=== PATIENT | male | born 1945 | race African-American/Black ===

== ENCOUNTER 2018-07-11 12:35 | Emergency (ER) | payer OTHER ==
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
[2018-07-11] MEDS ORDERED: ZOFRAN ODT PO ONE (13:48)
[2018-07-11] MEDS ORDERED: PERCOCET 5/325 PO ONE (13:48)
--- NOTE | 2018-07-11 14:14 | XRay Report ---
PROCEDURE: XR SHOULDER 2+V LT TECHNIQUE: 3 views of the left shoulder. HISTORY: left shoulder pain, s/p fall COMPARISON: None FINDINGS: There is a mildly comminuted and displaced fracture involving the humeral head and neck. This is not well characterized but grossly demonstrates lateral angulation. There is no dislocation seen. IMPRESSION: Mildly comminuted and displaced fracture of the left humeral head and neck. This document is electronically signed by Rosie House MD., Jul 11 2018 02:12:20 PM ET
--- NOTE | 2018-07-11 14:24 | Cat Scan Report ---
PROCEDURE: CT HEAD/BRAIN WO CON TECHNIQUE: Axial images of the head obtained without intravenous contrast. HISTORY: fall COMPARISONS: No priors FINDINGS: The ventricles are normal in size and configuration. There is no evidence of intracranial hemorrhage or hematoma. No intracranial mass or mass effect. Basal ganglia calcifications more prominent on the left. No edema or sulcal effacement. The calvarium is intact. There is no evidence of acute skull fracture. Left frontal and supraorbital scalp hematoma. Paranasal sinus mucosal thickening, likely chronic. IMPRESSION: No acute intracranial injury. Left frontal and supraorbital scalp hematoma.. This document is electronically signed by Gregor Munoz MD., Jul 11 2018 02:22:27 PM ET
--- NOTE | 2018-07-11 14:28 | Cat Scan Report ---
PROCEDURE: CT FACIAL BONES WO CON TECHNIQUE: Axial images obtained of the maxillofacial region without intravenous contrast. Sagittal and coronal reconstructions also obtained. HISTORY: fall, left orbital ecchymosis/edema COMPARISONS: No priors. FINDINGS: There is no evidence of acute mandibular, maxillary, zygomatic, orbital or nasal fracture. Paranasal sinus mucosal thickening, likely chronic. Ocular globes are normal in contour. No evidence of retrobulbar hematoma. Left periorbital contusion IMPRESSION: No evidence of acute maxillofacial fracture. Left periorbital contusion.. This document is electronically signed by Gregor Munoz MD., Jul 11 2018 02:26:25 PM ET
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
[2018-07-11 14:58] VITALS: BP 147/73
== END 2018-07-11 15:12 | disposition home or self-care (01) ==
LOC: ED 12:35
DX: S42.292A Other displaced fracture of upper end of left humerus, initial encounter for closed fracture (principal); W01.0XXA Fall on same level from slipping, tripping and stumbling without subsequent striking against object, initial encounter; Y93.89 Activity, other specified; Y92.89 Other specified places as the place of occurrence of the external cause; Y99.8 Other external cause status
CPT/HCPCS: 70450; 70486; Q0162

== ENCOUNTER 2018-07-27 13:21 | Outpatient (CLI) | payer MEDICARE ==
--- NOTE | 2018-07-27 17:09 | Cat Scan Report ---
PROCEDURE: CT UPPER EXTREM LT WO CON TECHNIQUE: Spiral imaging of the left shoulder was obtained without the use of IV contrast. Computer -generated sagittal and coronal reconstructions were created and displayed. HISTORY: FRACTURE OF LEFT SHOULDER GIRDIE COMPARISONS: Plain films left shoulder 07/11/2018 FINDINGS: There is a comminuted moderately displaced fracture of the body of the scapula. There is mild callus formation at the fracture site indicating ongoing healing. There is a comminuted impacted displaced fracture of the proximal shaft of the left humeral shaft wit h intra-articular extension. There is a large fragment including the greater tuberosity also the less er tuberosity and the groove for the long head of the biceps tendon. This large fragment is laterally displaced and also fractured with fracture lines extending through the greater tuberosity. The fract ure lines through the greater tuberosity are only mildly displaced. A large fragment of the humeral h ead is impacted inferiorly and medially. This fragment measures 3.4 cm best visualized on sagittal re construction image 79 series 301. Given this large displaced fragment the articular surface is severely disrupted. Callus formation is seen at these fracture sites as well indicating ongoing healing. There is no comp lete bony union at this time. IMPRESSION: Displaced impacted fracture proximal shaft of the humerus involving the articular surface as describe d. The articular surface of the humeral head as a result of the displacement is severely disrupted. There is a comminuted moderately displaced fracture of the body of the scapula as well. There is mild callus formation present at the fracture sites as described indicating ongoing healing. There is no evidence of complete bony union.. This document is electronically signed by Yoshi Ritter MD., Jul 27 2018 05:07:44 PM ET
== END 2018-07-27 13:22 | disposition home or self-care (01) ==
LOC: CT 13:21
PROVIDERS: ATTEND Orthopaedic Surgery
DX: S42.112A Displaced fracture of body of scapula, left shoulder, initial encounter for closed fracture (principal); S42.292A Other displaced fracture of upper end of left humerus, initial encounter for closed fracture; X58.XXXA Exposure to other specified factors, initial encounter; Y93.89 Activity, other specified; Y92.89 Other specified places as the place of occurrence of the external cause; Y99.8 Other external cause status

== ENCOUNTER 2018-08-05 08:57 | Observation (INO) | payer MEDICARE ==
--- NOTE | 2018-08-05 09:39 | Anesthesia Consultation ---
Anesthesia Consult and Med Hx Date of service: 08/05/18 - Airway Anesthetic Teeth Evaluation: Dentures ROM Head & Neck: Adequate Mental/Hyoid Distance: Adequate Mallampati Class: Class III Intubation Access Assessment: Probably Good - Pulmonary Exam CTA: Yes - Cardiac Exam Cardiac Exam: RRR - Pre-Operative Health Status ASA Pre-Surgery Classification: ASA2 Proposed Anesthetic Plan: General Nerve Block: IS (Patient has hx of Hep B, otherwise healthy) - Pulmonary Hx Smoking: No Hx Sleep Apnea: No (ZOFIA PRE SCREEN LOW RISK) - Cardiovascular System Hx Hypertension: No - Other Systems Hx Cancer: No
--- NOTE | 2018-08-05 09:40 | Anesthesia Day of Surgery ---
Anesthesia Day of Surgery - Day of Surgery Patient Examined: Yes Patient H&P Reviewed: Yes Patient is NPO: Yes
[2018-08-05] MEDS ORDERED: DILAUDID IV PRN (09:42)
[2018-08-05] MEDS ORDERED: ANCEF/STERILE WATER 2 GM/20 ML IV NR (10:00)
[2018-08-05] MEDS ORDERED: ZOFRAN IV PRN (10:00)
[2018-08-05] MEDS: LACTATED RINGERS 1,000 ML IV SCH ×2 (10:05→21:35)
[2018-08-05] MEDS ORDERED: VERSED ONE (10:16)
[2018-08-05] MEDS ORDERED: SUBLIMAZE ONE ×2 (10:17→11:29)
[2018-08-05] MEDS ORDERED: MARCAINE-EPI 0.5%-1:200,000 INFILTRATI ONE ×2 (10:18→11:14)
[2018-08-05] MEDS ORDERED: XYLOCAINE 1% 20 mL ONE (10:18)
[2018-08-05] MEDS ORDERED: DIPRIVAN 10 MG/ML IV ONE (11:25)
[2018-08-05] MEDS ORDERED: ZEMURON IV ONE (11:52)
[2018-08-05] MEDS ORDERED: ROBINUL ONE (11:52)
[2018-08-05] MEDS ORDERED: ZOFRAN ONE (11:52)
[2018-08-05] MEDS ORDERED: BLOXIVERZ ONE (11:52)
[2018-08-05] MEDS ORDERED: XYLOCAINE MPF 2% ONE (11:52)
[2018-08-05] MEDS ORDERED: TYLENOL PO PRN (13:49)
[2018-08-05] MEDS ORDERED: MORPHINE IV PRN (13:49)
--- NOTE | 2018-08-05 13:55 | Procedure Note ---
Date of procedure: 08/05/18 Pre-op diagnosis: [id number] left proximal humerus fracture Post-op diagnosis: same Procedure: Open reduction internal fixation left proximal humerus Procedure The patient was brought to the OR and placed on the OR table supine following induction and intubation by anesthesia the patient's left upper extremity was prepped and draped in the usual sterile manner he was placed in a beachchair position with a sandbag underneath the left shoulder. A timeout procedure was done to identify the patient and the correct operative site. A lateral incision was made along the proximal humerus this is taken down sharply through skin and subcutaneous the deltoid fascia and muscle was split in line with the skin incision this brought us down onto the fracture site patient was noted to have old clotted hematoma which was evacuated the humeral shaft was seen and exhibited early healing or callus formation next the in order to visualize the proximal fragment D rotator cuff tendon was split was then visualized on C-arm and was then manipulated into a more reduced position with the assistance of a K wire for mobility and temporary fixation. The axillary nerve and an artery were seen and protected next a locking plate was applied along the lateral border of the humerus next to the greater tuberosity patient was noted to have a large bony defect which necessitated use of cancellus bone allografting. Under C-arm visualization multiple locking screws were placed into the proximal fragment the shaft fragment was secured by way of 2 nonlocking screws AP and lateral views were obtained showing good reduction of fracture and placement of our hardware next the wound was copiously irrigated and was closed in a standard routine fashion starting with the deltoid fascia and rotator cuff tendon. Routine postoperative dressings were applied the patient tolerated the procedure there were no complications. He taken to post op recovery in stable condition. Anesthesia: XOCHITLA Surgeon: SARAH POWER Account Administrator: ALEX WRIGHT Estimated blood loss: other (300 mL) Pathology: none Condition: stable Disposition: PACU
[2018-08-05] MEDS ORDERED: SODIUM CHLORIDE FLUSH SYRINGE 10 ML IV NR (14:00)
[2018-08-05] MEDS ORDERED: LACTATED RINGERS 2,000 ML ONE (14:02)
[2018-08-05 14:55] LABS: Hematocrit 37.8 % (35.5-45.6); Hemoglobin 12.9 gm/dl (11.8-15.2); Mean Corpuscular HGB Conc 34 % (32-34); Mean Corpuscular Volume 89 fl (84-94); Platelet Count 197 K/mm3 (140-440); Red Blood Count 4.24 M/mm3 (3.65-5.03); Red Cell Distribution Width 13.3 % (13.2-15.2)
--- NOTE | 2018-08-05 15:11 | XRay Report ---
LEFT SHOULDER, 2 VIEWS History: Left humeral head fracture. Findings: Fluoroscopy was provided by radiology during orthopedic surgery. 3 fluoroscopic images of the left shoulder are presented demonstrating internal fixation of the left humeral head with metal plate and screws. Alignment is anatomic. There is normal articulation of the left shoulder joint. Impression: Open reduction and internal fixation of a proximal left humerus fracture.
--- NOTE | 2018-08-05 15:46 | Post Anesthesia Evaluation ---
- Post Anesthesia Evaluation Patient Participated: Yes Airway Patent: Yes Stable Respiratory Function: Yes Nausea/Vomiting: No Temp > 96.8F: Yes Pain Manageable: Yes Adequeate Hydration: Yes Anesthesia Complications: No Block Receding Appropriately: Yes Patient on Ventilator: No
[2018-08-05] MEDS: NORCO 5/325 PO PRN (21:32)
[2018-08-05] MEDS: ANCEF/NS 1 GM/50 ML 1 GM/50 ML BAG IV SCH (21:34)
[2018-08-06] MEDS: NORCO 5/325 PO PRN ×2 (03:08→08:43)
[2018-08-06] MEDS: ANCEF/NS 1 GM/50 ML 1 GM/50 ML BAG IV SCH (05:20)
[2018-08-06 06:07] LABS: Hematocrit 34.5 % (35.5-45.6); Hemoglobin 11.9 gm/dl (11.8-15.2)
[2018-08-06] MEDS: LACTATED RINGERS 1,000 ML IV SCH (08:53)
--- NOTE | 2018-08-06 13:41 | Progress Note ---
Assessment and Plan displaced left proximal humerus fracture s/p ORIF doing ok will dc to home today RTC in 10 for f/u Subjective Date of service: 08/06/18 Interval history: c/o left shoulder pain otherwise ok Objective Vital signs: Vital Signs - 12hr 08/06/18 08/06/18 08/06/18 03:08 04:08 04:48 Temperature 99.3 F Pulse Rate 81 Respiratory 17 17 20 Rate Blood Pressure 114/62 O2 Sat by Pulse 94 Oximetry 08/06/18 08/06/18 08:12 12:01 Temperature 98.0 F 98.4 F Pulse Rate 76 87 Respiratory 18 18 Rate Blood Pressure 106/57 145/83 O2 Sat by Pulse 95 96 Oximetry Narrative Exam: left shoulder - post op dressing intact, slight bloody drainage noted, good capillary refill - Labs CBC & BMP: 08/06/18 05:32 Labs: Abnormal lab results 08/06/18 Range/Units 05:32 Hct 34.5 L (35.5-45.6) %
[2018-08-06 14:57] VITALS: BP 145/83
== END 2018-08-06 15:05 | disposition home or self-care (01) ==
LOC: OR 08:57 → 3B-SURG 13:47
PROVIDERS: ADMIT Orthopaedic Surgery; ATTEND Orthopaedic Surgery
DX: S42.292A Other displaced fracture of upper end of left humerus, initial encounter for closed fracture (principal); J45.909 Unspecified asthma, uncomplicated; I10 Essential (primary) hypertension; B19.10 Unspecified viral hepatitis B without hepatic coma; Z79.899 Other long term (current) drug therapy; W01.0XXA Fall on same level from slipping, tripping and stumbling without subsequent striking against object, initial encounter; Y93.89 Activity, other specified; Y92.009 Unspecified place in unspecified non-institutional (private) residence as the place of occurrence of the external cause
CPT/HCPCS: 23615; 36415; 73030; 85014; 85018; 85027; 86850; 86900; 86901; 94760; 96365; 96366; 96375; 97110; 97165; 97535; C1713; G0378; J0690; J2250; J2270; J2405; J2704; J2710; J3010; J7120

== ENCOUNTER 2018-10-06 09:36 | Outpatient (CLI) | payer MEDICARE ==
--- NOTE | 2018-10-06 10:24 | XRay Report ---
LEFT SHOULDER, 3 VIEWS INDICATION: M25.512, PAIN IN LEFT SHOULDER. COMPARISON: 07/11/2018 IMPRESSION: The proximal left humerus fracture has been internally fixated with a metal plate and sc rews since the previous exam. Alignment is anatomic. Fracture lines remain slightly evident although calcified callus is seen bridging the fracture sites. No evidence for new or acute fracture. Mild ost eoarthritic changes are noted at the glenohumeral joint and acromioclavicular joint. Normal soft tis sues. Signer Name: Pineda Armendariz Jr, MD Signed: 10/06/2018 10:19 AM Workstation Name: [id number]
== END 2018-10-06 09:37 | disposition home or self-care (01) ==
LOC: XRAY 09:36
PROVIDERS: ATTEND Orthopaedic Surgery
DX: M19.012 Primary osteoarthritis, left shoulder (principal); I10 Essential (primary) hypertension

== ENCOUNTER 2020-03-16 13:07 | Observation (INO) | payer MEDICARE ==
--- NOTE | 2020-03-16 13:33 | Event Note ---
ED Screening Note Date of service: 03/16/20 Time: 13:28 ED Screening Note: 74-year-old lady remains male presents to the emergency room with his son concern for right-sided lower extremity weakness that started on Thursday. Son is concerned that that may had a stroke. Patient denies any headache at this time no nausea no vomiting. He is being treated for hepatitis B. Patient has had to start using a cane to help ambulate on Thursday. He takes hepatitis medication no blood pressure medicine. It was noted the patient had elevated blood pressure 161/89. This initial assessment/diagnostic orders/clinical plan/treatment(s) is/are subject to change based on patients health status, clinical progression and re- assessment by fellow clinical providers in the ED. Further treatment and workup at subsequent clinical providers discretion. Patient/guardian urged not to elope from the ED as their condition may be serious if not clinically assessed and managed. Initial orders include:
[2020-03-16 14:15] LABS: Basophils # (Auto) 0.1 K/mm3 (0.0-0.1); Basophils % (Auto) 0.8 % (0.0-1.8); Eosinophils # (Auto) 0.2 K/mm3 (0.0-0.4); Eosinophils % (Auto) 2.4 % (0.0-4.3); Hematocrit 48.1 % (35.5-45.6); Hemoglobin 16.4 gm/dl (11.8-15.2); Lymphocytes # (Auto) 1.9 K/mm3 (1.2-5.4); Mean Corpuscular HGB Conc 34 % (32-34); Mean Corpuscular Volume 89 fl (84-94); Monocytes # (Auto) 0.5 K/mm3 (0.0-0.8); Monocytes % (Auto) 6.7 % (0.0-7.3); Platelet Count 200 K/mm3 (140-440); Red Blood Count 5.39 M/mm3 (3.65-5.03); Red Cell Distribution Width 13.2 % (13.2-15.2)
[2020-03-16 15:02] LABS: Alanine Aminotransferase 43 units/L (7-56); Albumin 4.9 g/dL (3.9-5); BUN/Creatinine Ratio 14; Blood Urea Nitrogen 11 mg/dL (9-20); Calcium 9.7 mg/dL (8.4-10.2); Chol/HDL Ratio 2.98 %; HDL Cholesterol 70 mg/dL (40-59); Hemolysis Index 15; LDL Cholesterol,Direct 146 mg/dL (50-130)
[2020-03-16 17:55] LABS: Bilirubin,Urine NEG (Negative); Blood,Urine NEG (Negative); Color,Urine Yellow (Yellow); Mucus,Urine FEW /HPF; Protein,Urine <15 mg/dL mg/dL (Negative); Urobilinogen,Urine < 2.0 mg/dL (<2.0); WBC,Urine < 1.0 /HPF (0.0-6.0)
--- NOTE | 2020-03-16 18:39 | Cat Scan Report ---
CT head/brain wo con INDICATION: New weakness. TECHNIQUE: Routine CT head. All CT scans at this location are performed using CT dose reduction for A LIANA by means of automated exposure control. COMPARISON: 07/11/2018 FINDINGS: Intracranial: Dasilva-white matter differentiation is maintained. No intracranial hemorrhage. No extra a xial collection. No hydrocephalus. No herniation. Periventricular and centrum semiovale white matter hypoattenuation most consistent with sequela of chronic microvascular disease. Sinuses: Paranasal sinuses and mastoid air cells are essentially clear. Orbits: Globes are intact. Calvarium: No acute fracture. IMPRESSION: 1. No acute intracranial abnormality. Signer Name: Claude Westfall MD Signed: 03/16/2020 6:34 PM Workstation Name: [id number]
--- NOTE | 2020-03-16 23:47 | Emergency Department Report ---
ED Headache HPI - General Chief Complaint: Headache Stated Complaint: HEADACHE Time Seen by Provider: 03/16/20 23:31 Source: patient Exam Limitations: language barrier - History of Present Illness Initial Comments: 74-year-old male that presents emergency room with complaints of headache x1 week. Patient states the headache is mild. Patient states is about a 3 out of 10. Patient states the pain is better with rest and worse with exertion. Patient denies chest pain or shortness of breath. Patient states that 4 days ago he developed right-sided weakness. Patient state s that the weakness is making it difficult to walk. Patient states that the weakness is worsening. Patient saw an outpatient physician and was told to come here for evaluation and a head CT. Patient denies recent travel. Patient denies recent international travel. Patient denies exposure to the novel coronavirus. Patient denies sick contacts. Patient denies fever and chills. Patient denies cough. Patient denies diarrhea. Patient denies coming in contact with anybody with symptoms of the novel coronavirus. Son at bedside to interpret. Timing/Duration: 1 week Quality: mild Recent Head Trauma: chronic headaches Modifying Factors: improves with: movement, rest Associated Symptoms: weakness. denies: confusion, fatigue, facial pain, fever/chills, flushing, loss of consciousness, nausea/vomiting, nasal congestion, nasal drainage, numbness in legs/feet, rash, seizures, sinus infection, stiff neck, vision changes Allergies/Adverse Reactions: Allergies No Known Allergies Allergy (Verified 03/16/20 13:23) Home Medications: Ambulatory Orders Entecavir 0.5 mg PO DAILY 08/02/18 Multivit-Min/FA/Lycopen/Lutein [Centrum Silver Men Tablet] 1 each PO DAILY 08/02/18 Celecoxib [celeBREX] 200 mg PO BID #60 cap 08/06/18 Oxycodone HCl/Acetaminophen [Percocet 7.5/325 mg] 1 each PO Q6HR PRN #30 tablet 08/06/18 ED Review of Systems ROS: Stated complaint: HEADACHE Other details as noted in HPI Constitutional: weakness. denies: chills, fever Eyes: denies: eye pain, eye discharge, vision change ENT: denies: ear pain, throat pain Respiratory: denies: cough, shortness of breath, wheezing Cardiovascular: denies: chest pain, palpitations Endocrine: no symptoms reported Gastrointestinal: denies: abdominal pain, nausea, diarrhea Genitourinary: denies: urgency, dysuria Musculoskeletal: denies: back pain, joint swelling, arthralgia Skin: denies: rash, lesions Neurological: as per HPI, headache, weakness. denies: paresthesias Psychiatric: denies: anxiety, depression Hematological/Lymphatic: denies: easy bleeding, easy bruising ED Past Medical Hx - Past Medical History Previous Medical History?: Yes Hx Hypertension: Yes Hx CVA: Yes Hx Diabetes: Yes Hx Arthritis: Yes Hx HIV: No - Surgical History Past Surgical History?: No - Family History Family history: no significant - Social History Smoking Status: Never Smoker Substance Use Type: None - Medications Home Medications: Home Medications Medication Instructions Recorded Confirmed Last Taken Type Entecavir 0.5 mg PO DAILY 08/02/18 08/02/18 08/04/18 History Multivit-Min/FA/Lycopen/Lutein 1 each PO DAILY 08/02/18 08/05/18 08/04/18 History [Centrum Silver Men Tablet] Celecoxib [celeBREX] 200 mg PO BID #60 cap 08/06/18 Unknown Rx Oxycodone HCl/Acetaminophen 1 each PO Q6HR PRN #30 tablet 08/06/18 Unknown Rx [Percocet 7.5/325 mg] ED Physical Exam - General Limitations: Language Barrier General appearance: alert, in no apparent distress - Head Head exam: Present: atraumatic, normocephalic - Eye Eye exam: Present: normal appearance, PERRL Pupils: Present: normal accommodation - ENT ENT exam: Present: mucous membranes moist - Neck Neck exam: Present: normal inspection - Respiratory Respiratory exam: Present: normal lung sounds bilaterally. Absent: respiratory distress - Cardiovascular Cardiovascular Exam: Present: regular rate, normal rhythm. Absent: systolic murmur, diastolic murmur, rubs, gallop - GI/Abdominal GI/Abdominal exam: Present: soft, normal bowel sounds - Rectal Rectal exam: Present: deferred - Extremities Exam Extremities exam: Present: normal inspection - Back Exam Back exam: Present: normal inspection - Neurological Exam Neurological exam: Present: alert, oriented X3, CN II-XII intact, abnormal gait - Psychiatric Psychiatric exam: Present: normal affect, normal mood - Skin Skin exam: Present: warm, dry, intact, normal color. Absent: rash ED Course Vital Signs 03/16/20 13:24 Temperature 98.1 F Pulse Rate 65 Respiratory 18 Rate Blood Pressure 161/89 O2 Sat by Pulse 95 Oximetry - Reevaluation(s) Reevaluation #1: I discussed all results with patient. I discussed plan of care with patient. Patient agrees with plan of care and admission. Patient to be admitted to the hospitalist service. 03/17/20 00:20 - Consultations Consultation #1: Neurology consulted. 03/17/20 00:02 Neurology saw the patient and recommends admission, MRI and stroke work-up. 03/17/20 00:17 Consultation #2: Hospitalist consulted for admission. Hospitalist to admit patient. 03/17/20 00:19 ED Medical Decision Making - Lab Data Result diagrams: 03/16/20 13:49 03/16/20 13:49 - Radiology Data Radiology results: report reviewed CT head/brain wo con INDICATION: New weakness. TECHNIQUE: Routine CT head. All CT scans at this location are performed using CT dose reduction for ALARA by means of automated exposure control. COMPARISON: 07/11/2018 FINDINGS: Intracranial: Dasilva-white matter differentiation is maintained. No intracranial hemorrhage. No extra axial collection. No hydrocephalus. No herniation. Periventricular and centrum semiovale white matter hypoattenuation most consistent with sequela of chronic microvascular disease. Sinuses: Paranasal sinuses and mastoid air cells are essentially clear. Orbits: Globes are intact. Calvarium: No acute fracture. IMPRESSION: 1. No acute intracranial abnormality. - Differential Diagnosis CVA, weakness, headache, hypertension, Critical Care Time: Yes Critical care time in (mins) excluding proc time.: 35 Critical care attestation.: If time is entered above; I have spent that time in minutes in the direct care of this critically ill patient, excluding procedure time. Critical Care Time: 35 MINUTES ED Disposition Clinical Impression: Right sided weakness Headache Qualifiers: Headache type: unspecified Headache chronicity pattern: acute headache Intracta bility: not intractable Qualified Code(s): R51.9 - Headache, unspecified Disposition: -09 OP ADMIT IP TO THIS HOSP Is pt being admited?: Yes Does the pt Need Aspirin: No Condition: Critical Time of Disposition: 00:22 - Assessment Assessment Interval: Baseline - Level of Consciousness 1a. Level of Consciousness: alert/keenly responsive - LOC Questions 1b. LOC Questions: answers both correctly - LOC Command 1c. LOC Commands: performs tasks correctly - Best Gaze 2. Best Gaze: normal - Visual 3. Visual: no visual loss - Facial Palsy 4. Facial Palsy: normal symmetrical movement - Motor Arm 5a. Motor Arm Left: no drift 5b. Motor Arm Right: no drift - Motor Leg 6a. Motor Leg Left: no drift 6b. Motor Leg Right: drift - Limb Ataxia 7. Limb Ataxia: absent - Sensory 8. Sensory: normal - Best Language 9. Best Language: no aphasia - Dysarthria 10. Dysarthria: normal - Extinction and Inattention 11. Extinction/Inattention: no abnormality - Scoring Total Score: 1 Stroke Severity: Minor Stroke
--- NOTE | 2020-03-17 00:17 | Emergency Department Report ---
ED Neuro Deficit HPI - General Chief Complaint: Headache Stated Complaint: HEADACHE Time Seen by Provider: 03/16/20 23:31 Source: patient Mode of arrival: Ambulatory Limitations: Language Barrier - History of Present Illness Initial Comments: [facility] Services Stat Consult Date of Service: 03/16/2020 23:59:48 Impression: R53.1 - Weakness Comments/Sign-Out: acute onset right sided weakness and headache - concerning for L frontal vs subcortical infarct. Recommend admission for stroke workup. CT HEAD: Showed No Acute Hemorrhage or Acute Core Infarct Reviewed Metrics: [facility] Notification Time: 03/16/2020 23:59:48 Stamp Time: 03/16/2020 23:59:48 Our recommendations are outlined below. Recommendations: start ASA if CT head is neg for hemorrhage. Imaging Studies: MRI Head MRA Head and Neck Without Contrast When Available - Stroke Protocol Therapies: Physical Therapy, Occupational Therapy, Speech Therapy Assessment When Applicable Other WorkUp: Infectious/metabolic workup per primary team Disposition: Neurology Follow Up Recommended Sign Out: Discussed with Emergency Department Provider Chief Complaint: headache; right sided weakness History of Present Illness: Patient is a 74 year old Male. 74 yo man with 4 days of headache and right sided weakness. He woke up with the symptoms 4 days ago. He started to require a cane to walk. No trouble speaking/swallowing. PMH: Hep B; htn Past Medical History: Hypertension Anticoagulant use: No Antiplatelet use: No Examination: BP(161/89), Pulse(65), Blood Glucose(131) 1A: Level of Consciousness - Alert; keenly responsive + 0 1B: Ask Month and Age - Both Questions Right + 0 1C: Blink Eyes & Squeeze Hands - Performs Both Tasks + 0 2: Test Horizontal Extraocular Movements - Normal + 0 3: Test Visual Darling - No Visual Loss + 0 4: Test Facial Palsy (Use Grimace if Obtunded) - Minor paralysis (flat nasolabial fold, smile asymmetry) + 1 5A: Test Left Arm Motor Drift - No Drift for 10 Seconds + 0 5B: Test Right Arm Motor Drift - No Drift for 10 Seconds + 0 6A: Test Left Leg Motor Drift - No Drift for 5 Seconds + 0 6B: Test Right Leg Motor Drift - Drift, but doesn't hit bed + 1 7: Test Limb Ataxia (FNF/Heel-Rossi) - No Ataxia + 0 8: Test Sensation - Normal; No sensory loss + 0 9: Test Language/Aphasia - Normal; No aphasia + 0 10: Test Dysarthria - Normal + 0 11: Test Extinction/Inattention - No abnormality + 0 NIHSS Score: 2 Due to the immediate potential for life-threatening deterioration due to underlying acute neurologic illness, I spent 15 minutes providing critical care. This time includes time for face to face visit via telemedicine, review of medical records, imaging studies and discussion of findings with providers, the patient and/or family. Dr Josh Syed [facility] Case [id number] - Related Data Home Medications: Home Medications Medication Instructions Recorded Confirmed Last Taken Entecavir 0.5 mg PO DAILY 08/02/18 08/02/18 08/04/18 Multivit-Min/FA/Lycopen/Lutein 1 each PO DAILY 08/02/18 08/05/18 08/04/18 [Centrum Silver Men Tablet] Previous Rx's Medication Instructions Recorded Last Taken Type Celecoxib [celeBREX] 200 mg PO BID #60 cap 08/06/18 Unknown Rx Oxycodone HCl/Acetaminophen 1 each PO Q6HR PRN #30 tablet 08/06/18 Unknown Rx [Percocet 7.5/325 mg] Allergies/Adverse Reactions: Allergies Allergy/AdvReac Type Severity Reaction Status Date / Time No Known Allergies Allergy Verified 03/16/20 13:23 ED Review of Systems ROS: Stated complaint: HEADACHE Other details as noted in HPI Constitutional: weakness. denies: chills, fever Eyes: denies: eye pain, eye discharge, vision change ENT: denies: ear pain, throat pain Respiratory: denies: cough, shortness of breath, wheezing Cardiovascular: denies: chest pain, palpitations Endocrine: no symptoms reported Gastrointestinal: denies: abdominal pain, nausea, diarrhea Genitourinary: denies: urgency, dysuria Musculoskeletal: denies: back pain, joint swelling, arthralgia Skin: denies: rash, lesions Neurological: as per HPI, headache, weakness. denies: paresthesias Psychiatric: denies: anxiety, depression Hematological/Lymphatic: denies: easy bleeding, easy bruising ED Past Medical Hx - Past Medical History Previous Medical History?: Yes Hx Hypertension: Yes Hx CVA: Yes Hx Diabetes: Yes Hx Arthritis: Yes Hx HIV: No - Surgical History Past Surgical History?: No - Social History Smoking Status: Never Smoker Substance Use Type: None - Medications Home Medications: Home Medications Medication Instructions Recorded Confirmed Last Taken Type Entecavir 0.5 mg PO DAILY 08/02/18 08/02/18 08/04/18 History Multivit-Min/FA/Lycopen/Lutein 1 each PO DAILY 08/02/18 08/05/18 08/04/18 History [Centrum Silver Men Tablet] Celecoxib [celeBREX] 200 mg PO BID #60 cap 08/06/18 Unknown Rx Oxycodone HCl/Acetaminophen 1 each PO Q6HR PRN #30 tablet 08/06/18 Unknown Rx [Percocet 7.5/325 mg] ED Neuro Physical Exam - General Limitations: Language Barrier General appearance: alert, in no apparent distress Suspected Stroke: Yes - NIHSS Assessment Interval: Baseline 1a. Level of Consciousness: alert/keenly responsive 1b. LOC Questions: answers both correctly 1c. LOC Commands: performs tasks correctly 2. Best Gaze: normal 3. Visual: no visual loss 4. Facial Palsy: minor paralysis 5b. Motor Arm Right: no drift 5a. Motor Arm Left: no drift 6a. Motor Leg Left: no drift 6b. Motor Leg Right: drift 7. Limb Ataxia: absent 8. Sensory: normal 9. Best Language: no aphasia 10. Dysarthria: normal 11. Extinction/Inattention: no abnormality Total Score: 2 Stroke Severity: Minor Stroke ED Course Vital Signs 03/16/20 13:24 Temperature 98.1 F Pulse Rate 65 Respiratory 18 Rate Blood Pressure 161/89 O2 Sat by Pulse 95 Oximetry - Lab Data Result diagrams: 03/16/20 13:49 03/16/20 13:49 Lab Results 03/16/20 03/16/20 03/16/20 Range/Units 13:49 13:49 Unknown WBC 7.6 (4.5-11.0) K/mm3 RBC 5.39 H (3.65-5.03) M/mm3 Hgb 16.4 H (11.8-15.2) gm/dl Hct 48.1 H (35.5-45.6) % MCV 89 (84-94) fl MCH 30 (28-32) pg MCHC 34 (32-34) % RDW 13.2 (13.2-15.2) % Plt Count 200 (140-440) K/mm3 Lymph % (Auto) 25.0 (13.4-35.0) % [place] % (Auto) 6.7 (0.0-7.3) % Eos % (Auto) 2.4 (0.0-4.3) % Baso % (Auto) 0.8 (0.0-1.8) % Lymph # (Auto) 1.9 (1.2-5.4) K/mm3 [place] # (Auto) 0.5 (0.0-0.8) K/mm3 Eos # (Auto) 0.2 (0.0-0.4) K/mm3 Baso # (Auto) 0.1 (0.0-0.1) K/mm3 Seg Neutrophils % 65.1 (40.0-70.0) % Seg Neutrophils # 5.0 (1.8-7.7) K/mm3 Sodium 140 (137-145) mmol/L Potassium 4.9 (3.6-5.0) mmol/L Chloride 99.5 (98-107) mmol/L Carbon Dioxide 32 H (22-30) mmol/L Anion Gap 13 mmol/L BUN 11 (9-20) mg/dL Creatinine 0.8 (0.8-1.3) mg/dL Estimated GFR > 60 ml/min BUN/Creatinine Ratio 14 % Glucose 131 H (75-100) mg/dL Calcium 9.7 (8.4-10.2) mg/dL Total Bilirubin 0.80 (0.1-1.2) mg/dL AST 32 (5-40) units/L ALT 43 (7-56) units/L Alkaline Phosphatase 103 (35-129) units/L Total Protein 7.9 (6.3-8.2) g/dL Albumin 4.9 (3.9-5) g/dL Albumin/Globulin Ratio 1.6 % Triglycerides 68 (2-149) mg/dL Cholesterol 209 H (50-199) mg/dL LDL Cholesterol Direct 146 H (50-130) mg/dL HDL Cholesterol 70 H (40-59) mg/dL Cholesterol/HDL Ratio 2.98 % Urine Color Yellow (Yellow) Urine Turbidity Clear (Clear) Urine pH 6.0 (5.0-7.0) Ur Specific [place] 1.016 (1.003-1.030) Urine Protein <15 mg/dl (Negative) mg/dL Urine Glucose (UA) Neg (Negative) mg/dL Urine Ketones Neg (Negative) mg/dL Urine Blood Neg (Negative) Urine Nitrite Neg (Negative) Urine Bilirubin Neg (Negative) Urine Urobilinogen < 2.0 (<2.0) mg/dL Ur Leukocyte Esterase Neg (Negative) Urine WBC (Auto) < 1.0 (0.0-6.0) /HPF Urine RBC (Auto) 1.0 (0.0-6.0) /HPF Urine Mucus Few /HPF Critical care attestation.: If time is entered above; I have spent that time in minutes in the direct care of this critically ill patient, excluding procedure time. ED Disposition Clinical Impression: Right hemiparesis Disposition: DC-09 OP ADMIT IP TO THIS HOSP Is pt being admited?: Yes Condition: Stable Referrals: PRIMARY CARE, [Primary Care Provider] - 3-5 Days
--- NOTE | 2020-03-17 00:46 | History and Physical Report ---
History of Present Illness Date of examination: 03/17/20 Date of admission: 03/17/20 Chief complaint: Right sided weakness Headache History of present illness: 74-year-old lady remains male presents to the emergency room with his son concern for right-sided lower extremity weakness that started on Thursday. Son is concerned that that may had a stroke. Patient denies any headache at this time no nausea no vomiting. He is being treated for hepatitis B. Patient has had to start using a cane to help ambulate on Thursday. He takes hepatitis medication no blood pressure medicine. It was noted the patient had elevated blood pressure 161/89. Patient seen at bedside-son in the room at the time of assessment. Patient reports right sided weakness, hx of hypertension and left shoulder surgery due to fracture from a fall about 2 years ago. He denies alcohol, tobacco and illicit drug use. Reviewed lab, mar, and v/s. Ed Work up shows CT of the head Nrgative for acute process WBC 7.6, hemoglobin 16.4, potassium 4.9, glucose 131 MRI of the brain, MRA head and neck ordered. Past History Past Medical History: hepatitis, hypertension Past Surgical History: Other (left shoulf surgery) Social history: no significant social history, lives with family Family history: no significant family history Medications and Allergies Allergies Allergy/AdvReac Type Severity Reaction Status Date / Time No Known Allergies Allergy Verified 03/16/20 13:23 Home Medications Medication Instructions Recorded Confirmed Last Taken Type Entecavir 0.5 mg PO DAILY 08/02/18 08/02/18 08/04/18 History Multivit-Min/FA/Lycopen/Lutein 1 each PO DAILY 08/02/18 08/05/18 08/04/18 Histo ry [Centrum Silver Men Tablet] Celecoxib [celeBREX] 200 mg PO BID #60 cap 08/06/18 Unknown Rx Oxycodone HCl/Acetaminophen 1 each PO Q6HR PRN #30 tablet 08/06/18 Unknown Rx [Percocet 7.5/325 mg] Review of Systems Constitutional: weakness Ears, nose, mouth and throat: no epistaxis, no bleeding gums Cardiovascular: high blood pressure, no chest pain, no orthopnea Respiratory: no congestion Gastrointestinal: no abdominal pain Genitourinary Male: no dysuria Rectal: no pain Musculoskeletal: no neck stiffness Integumentary: no rash Neurological: no head injury Psychiatric: no anxiety Hematologic/Lymphatic: no easy bruising Exam - Constitutional Vitals: Temp Pulse Resp BP Pulse Ox 98.1 F 65 18 161/89 95 03/16/20 13:24 03/16/20 13:24 03/16/20 13:24 03/16/20 13:24 03/16/20 13:24 General appearance: Present: mild distress - EENT Eyes: Present: PERRL ENT: hearing intact, clear oral mucosa - Neck Neck: Present: supple, normal ROM - Respiratory Respiratory effort: normal Respiratory: bilateral: CTA - Cardiovascular Heart rate: 63 Heart Sounds: Present: S1 & S2. Absent: rub, click - Extremities Extremities: pulses symmetrical, No edema Peripheral Pulses: within normal limits - Abdominal General gastrointestinal: Present: soft, non-tender, non-distended, normal bowel sounds Male genitourinary: Present: normal - Integumentary Integumentary: Present: clear, warm, dry - Musculoskeletal Musculoskeletal: right sided weakness - Psychiatric Psychiatric: appropriate mood/affect, intact judgment & insight - Neurologic Neurologic: CNII-XII intact, moves all extremities - Allied Health Allied health notes reviewed: nursing Results - Labs CBC & Chem 7: 03/16/20 13:49 03/16/20 13:49 Labs: Abnormal lab results 03/16/20 03/16/20 Range/Units 13:49 13:49 RBC 5.39 H (3.65-5.03) M/mm3 Hgb 16.4 H (11.8-15.2) gm/dl Hct 48.1 H (35.5-45.6) % Carbon Dioxide 32 H (22-30) mmol/L Glucose 131 H (75-100) mg/dL Cholesterol 209 H (50-199) mg/dL LDL Cholesterol Direct 146 H (50-130) mg/dL HDL Cholesterol 70 H (40-59) mg/dL Assessment and Plan - Patient Problems (1) Right hemiparesis Current Visit: Yes Status: Acute Plan to address problem: neurologist consulted CT of the head PT/OT and speech consulted neuro check Continue statin and ASA (2) Essential hypertension Current Visit: Yes Status: Acute Plan to address problem: Monitor blood pressure Resume home bp med Adjust antihypertensive PRN (3) Hyperlipidemia Current Visit: Yes Status: Acute Plan to address problem: statin therapy (4) DVT prophylaxis Current Visit: Yes Status: Acute Plan to address problem: SQ Lovenox
[2020-03-17] MEDS ORDERED: ALUM-MAG HYDROXIDE-SIMETHICONE 200-200-20MG/5ML ORAL LIQD 30 ML PO PRN (00:53)
[2020-03-17] MEDS ORDERED: MAGNESIUM HYDROXIDE (MOM) ORAL LIQD UDC PO PRN (00:53)
[2020-03-17] MEDS ORDERED: ACETAMINOPHEN 325 MG TAB PO PRN (00:53)
[2020-03-17] MEDS ORDERED: ONDANSETRON 4 MG/2 ML INJ IV PRN (00:53)
[2020-03-17] MEDS ORDERED: hydrALAZINE 20 MG/1 ML INJ IV PRN (01:02)
[2020-03-17] MEDS ORDERED: ENOXAPARIN 30 MG/0.3 ML INJ SUB-Q SCH (10:00)
--- NOTE | 2020-03-17 10:10 | Progress Note ---
Assessment and Plan Assessment and plan: --Acute CVA Current Visit: Yes Status: Acute Plan to address problem: patient has neuro symptoms and right-sided weakness Possible acute CVA, patient is evaluated by telemetry neurologist Not a candidate for TPA, recommend management per stroke protocol MRI/MRA head and neck requested, pending Carotid Doppler echocardiogram pending Aspirin and statin PT OT rehab -- Right hemiparesis Current Visit: Yes Status: Acute Plan to address problem: Follow neuro work-up CT head no acute abnormality noted Follow MRI, MRA brain and neck, carotid Doppler Echocardiogram, follow clinically --Essential hypertension Current Visit: Yes Status: Acute Plan to address problem: Closely monitor blood pressures Maintain permissive hypertension per stroke protocol As needed hydralazine --History of hepatitis; on entecavir at home --Hyperlipidemia Current Visit: Yes Status: Acute Plan to address problem: statin , low-cholesterol diet --DVT prophylaxis Current Visit: Yes Status: Acute Plan to address problem: SQ Lovenox We will closely monitor the patient and adjust the management as needed Follow neuro work-up, will consult neurologist[not available during the weekend] Plan of care reviewed with the patient and his nurse Advance care 35 minutes History Interval history: I have seen and examined the patient at the bedside Patient's chart and medications reviewed Patient was admitted with neuro symptoms to evaluate for acute CVA Telemetry neurologist evaluated the patient Not a candidate for TPA Extensive neuro work-up is requested Pending MRI/MRA today Patient feels slightly better no new complaints Hospitalist Physical - Constitutional Vitals: Temp Pulse Resp BP Pulse Ox 98.2 F 67 18 157/83 94 03/17/20 07:43 03/17/20 07:43 03/17/20 07:43 03/17/20 07:43 03/17/20 07:43 General appearance: Present: mild distress, cachectic - EENT Eyes: Present: PERRL, EOM intact - Neck Neck: Present: supple, normal ROM - Respiratory Respiratory effort: normal Respiratory: bilateral: rales, rhonchi, negative: wheezing - Cardiovascular Rhythm: regular - Extremities Extremities: no ischemia, pulses intact - Abdominal General gastrointestinal: soft, non-tender, non-distended, normal bowel sounds - Integumentary Integumentary: Present: clear, warm - Psychiatric Psychiatric: appropriate mood/affect, cooperative - Neurologic Neurologic: CNII-XII intact, moves all extremities Results - Labs CBC & Chem 7: 03/16/20 13:49 03/16/20 13:49 Labs: Laboratory Last Values WBC 7.6 K/mm3 (4.5-11.0) 03/16/20 13:49 RBC 5.39 M/mm3 (3.65-5.03) H 03/16/20 13:49 Hgb 16.4 gm/dl (11.8-15.2) H 03/16/20 13:49 Hct 48.1 % (35.5-45.6) H 03/16/20 13:49 MCV 89 fl (84-94) 03/16/20 13:49 MCH 30 pg (28-32) 03/16/20 13:49 MCHC 34 % (32-34) 03/16/20 13:49 RDW 13.2 % (13.2-15.2) 03/16/20 13:49 Plt Count 200 K/mm3 (140-440) 03/16/20 13:49 Lymph % (Auto) 25.0 % (13.4-35.0) 03/16/20 13:49 [place] % (Auto) 6.7 % (0.0-7.3) 03/16/20 13:49 Eos % (Auto) 2.4 % (0.0-4.3) 03/16/20 13:49 Baso % (Auto) 0.8 % (0.0-1.8) 03/16/20 13:49 Lymph # (Auto) 1.9 K/mm3 (1.2-5.4) 03/16/20 13:49 [place] # (Auto) 0.5 K/mm3 (0.0-0.8) 03/16/20 13:49 Eos # (Auto) 0.2 K/mm3 (0.0-0.4) 03/16/20 13:49 Baso # (Auto) 0.1 K/mm3 (0.0-0.1) 03/16/20 13:49 Seg Neutrophils % 65.1 % (40.0-70.0) 03/16/20 13:49 Seg Neutrophils # 5.0 K/mm3 (1.8-7.7) 03/16/20 13:49 Sodium 140 mmol/L (137-145) 03/16/20 13:49 Potassium 4.9 mmol/L (3.6-5.0) 03/16/20 13:49 Chloride 99.5 mmol/L (98-107) 03/16/20 13:49 Carbon Dioxide 32 mmol/L (22-30) H 03/16/20 13:49 Anion Gap 13 mmol/L 03/16/20 13:49 BUN 11 mg/dL (9-20) 03/16/20 13:49 Creatinine 0.8 mg/dL (0.8-1.3) 03/16/20 13:49 Estimated GFR > 60 ml/min 03/16/20 13:49 BUN/Creatinine Ratio 14 % 03/16/20 13:49 Glucose 131 mg/dL (75-100) H 03/16/20 13:49 Hemoglobin A1c 6.8 % (4-6) H 03/17/20 05:46 Calcium 9.7 mg/dL (8.4-10.2) 03/16/20 13:49 Total Bilirubin 0.80 mg/dL (0.1-1.2) 03/16/20 13:49 AST 32 units/L (5-40) 03/16/20 13:49 ALT 43 units/L (7-56) 03/16/20 13:49 Alkaline Phosphatase 103 units/L (35-129) 03/16/20 13:49 Total Protein 7.9 g/dL (6.3-8.2) 03/16/20 13:49 Albumin 4.9 g/dL (3.9-5) 03/16/20 13:49 Albumin/Globulin Ratio 1.6 % 03/16/20 13:49 Triglycerides 68 mg/dL (2-149) 03/16/20 13:49 Cholesterol 209 mg/dL (50-199) H 03/16/20 13:49 LDL Cholesterol Direct 146 mg/dL (50-130) H 03/16/20 13:49 HDL Cholesterol 70 mg/dL (40-59) H 03/16/20 13:49 Cholesterol/HDL Ratio 2.98 % 03/16/20 13:49 Urine Color Yellow (Yellow) 03/16/20 Unknown Urine Turbidity Clear (Clear) 03/16/20 Unknown Urine pH 6.0 (5.0-7.0) 03/16/20 Unknown Ur Specific [place] 1.016 (1.003-1.030) 03/16/20 Unknown Urine Protein <15 mg/dl mg/dL (Negative) 03/16/20 Unknown Urine Glucose (UA) Neg mg/dL (Negative) 03/16/20 Unknown Urine Ketones Neg mg/dL (Negative) 03/16/20 Unknown Urine Blood Neg (Negative) 03/16/20 Unknown Urine Nitrite Neg (Negative) 03/16/20 Unknown Urine Bilirubin Neg (Negative) 03/16/20 Unknown Urine Urobilinogen < 2.0 mg/dL (<2.0) 03/16/20 Unknown Ur Leukocyte Esterase Neg (Negative) 03/16/20 Unknown Urine WBC (Auto) < 1.0 /HPF (0.0-6.0) 03/16/20 Unknown Urine RBC (Auto) 1.0 /HPF (0.0-6.0) 03/16/20 Unknown Urine Mucus Few /HPF 03/16/20 Unknown [place]/IV: Voiding Method Urinal IV Catheter Type [Left Forearm INT / Saline Lock ] Active Medications - Current Medications Current Medications: Generic Name Dose Route Start Last Admin Trade Name Freq PRN Reason Stop Dose Admin Acetaminophen 650 mg 03/17/20 00:53 Acetaminophen 325 Mg Tab PO Q4H PRN Pain MILD(1-3)/Fever >100.5/CALLAHAN Al Hydrox/Mg Hydrox/Simethicone 30 ml 03/17/20 00:53 Alum-Mag Hydroxide-Simethicone [id number]/5ml Oral Liqd 30 Ml PO Q4H PRN Indigestion Amlodipine Besylate 10 mg 03/17/20 10:00 Amlodipine 10 Mg Tab PO QDAY BRADY Aspirin 81 mg 03/17/20 10:00 Aspirin Ec 81 Mg Tab PO DAILY BRADY Atorvastatin Calcium 40 mg 03/17/20 22:00 Atorvastatin 40 Mg Tab PO QHS BRADY Enoxaparin Sodium 40 mg 03/17/20 10:00 Enoxaparin 40 Mg/0.4 Ml Inj SUB-Q QDAY@1000 BRADY Famotidine 10 mg 03/17/20 10:00 Famotidine 10 Mg Tab PO DAILY BRADY Hydralazine HCl 5 mg 03/17/20 01:02 Hydralazine 20 Mg/1 Ml Inj IV Q30MIN PRN Hypertension Magnesium Hydroxide 30 ml 03/17/20 00:53 Magnesium Hydroxide (Mom) Oral Liqd Udc PO Q4H PRN Constipation Ondansetron HCl 4 mg 03/17/20 00:53 Ondansetron 4 Mg/2 Ml Inj IV Q8H PRN Nausea And Vomiting Sodium Chloride 10 ml 03/17/20 10:00 Sodium Chloride 0.9% 10 Ml Flush Syringe IV BID BRADY Sodium Chloride 10 ml 03/17/20 00:53 Sodium Chloride 0.9% 10 Ml Flush Syringe IV PRN PRN LINE FLUSH Trazodone HCl 50 mg 03/17/20 22:00 Trazodone 50 Mg Tab PO QHS BRADY
[2020-03-17] MEDS: amLODIPine 10 MG TAB PO SCH (10:16)
[2020-03-17] MEDS: ASPIRIN EC 81 MG TAB PO SCH (10:16)
[2020-03-17] MEDS: FAMOTIDINE 10 MG TAB PO SCH (10:16)
[2020-03-17] MEDS: ENOXAPARIN 40 MG/0.4 ML INJ SUB-Q SCH (10:17)
[2020-03-17] MEDS: traZODone 50 MG TAB PO SCH (21:15)
[2020-03-18] MEDS: FAMOTIDINE 10 MG TAB PO SCH (09:49)
[2020-03-18] MEDS: amLODIPine 10 MG TAB PO SCH (09:49)
[2020-03-18] MEDS: ASPIRIN EC 81 MG TAB PO SCH (09:50)
[2020-03-18] MEDS: ENOXAPARIN 40 MG/0.4 ML INJ SUB-Q SCH (09:50)
--- NOTE | 2020-03-18 10:22 | Progress Note ---
Subjective Date of service: 03/18/20 Interval history: Assessment and plan: --Acute CVA Current Visit: Yes Status: Acute Plan to address problem: patient has neuro symptoms and right-sided weakness Possible acute CVA, patient is evaluated by telemetry neurologist Not a candidate for TPA, recommend management per stroke protocol MRI/MRA head and neck requested, pending Carotid Doppler echocardiogram pending cont. Aspirin and statin -PT note reviewed/recommended home PT -Discharge patient when neuro work-up is completed -- Right hemiparesis Current Visit: Yes Status: Acute Plan to address problem: Follow neuro work-up CT head no acute abnormality noted Follow MRI, MRA brain and neck, carotid Doppler Echocardiogram, -Patient is able to ambulate with a cane --Essential hypertension Current Visit: Yes Status: Acute Plan to address problem: Closely monitor blood pressures Well controlled Continue amlodipine As needed hydralazine --History of hepatitis; on entecavir at home --Hyperlipidemia Current Visit: Yes Status: Acute Plan to address problem: High intensity statin , low-cholesterol diet --DVT prophylaxis Current Visit: Yes Status: Acute Plan to address problem: SQ Lovenox We will closely monitor the patient and adjust the management as needed Follow neuro work-up, will consult neurologist[not available during the weekend] Plan of care reviewed with the patient and his nurse Discharge patient when neuro work-up is completed History Interval history: I have seen and examined the patient at the bedside Patient's chart and medications reviewed Patient was admitted with neuro symptoms to evaluate for acute CVA Telemetry neurologist evaluated the patient Not a candidate for TPA Extensive neuro work-up is requested Pending MRI/MRA today Patient feels slightly better no new complaints 03/18 patient is alert and oriented, he offers no specific complaints, denies chest pain or shortness of breath. Chart reviewed. Lab results reviewed Objective - Constitutional Vitals: Vital Signs - 12hr 03/18/20 03/18/20 03/18/20 00:10 04:17 08:10 Temperature 98.6 F 98.0 F 98.0 F Pulse Rate 78 72 71 Respiratory 20 20 18 Rate Blood Pressure 123/70 119/73 Blood Pressure 141/68 [Right] O2 Sat by Pulse 98 93 93 Oximetry 03/18/20 09:27 Temperature Pulse Rate 72 Respiratory Rate Blood Pressure Blood Pressure [Right] O2 Sat by Pulse Oximetry General appearance: Present: no acute distress - EENT Eyes: PERRL, EOM intact ENT: hearing intact, clear oral mucosa - Neck Neck: supple, normal ROM, no masses or JVD, no carotid bruits - Cardiovascular Rhythm: regular Heart Sounds: Present: S1 & S2 Extremities: No edema - Gastrointestinal General gastrointestinal: Present: soft, non-tender Rectal Exam: deferred - Genitourinary Male genitourinary: deferred - Integumentary Integumentary: clear - Neurologic Neurologic: moves all extremities (Range of motion in the left upper extremity is diminished secondary to old fracture of the shoulder, he moves all other extremities) - Labs CBC & Chem 7: 03/16/20 13:49 03/16/20 13:49
[2020-03-18] MEDS: INSULIN LISPRO 100 UNIT/ML VIAL 3 mL SUB-Q SCH ×2 (12:18→16:46)
[2020-03-18] MEDS: traZODone 50 MG TAB PO SCH (22:11)
[2020-03-19 05:40] LABS: Hematocrit 42.7 % (35.5-45.6); Hemoglobin 14.5 gm/dl (11.8-15.2); Mean Corpuscular HGB Conc 34 % (32-34); Mean Corpuscular Volume 89 fl (84-94); Platelet Count 180 K/mm3 (140-440); Red Blood Count 4.81 M/mm3 (3.65-5.03); Red Cell Distribution Width 13.3 % (13.2-15.2)
[2020-03-19 06:08] LABS: BUN/Creatinine Ratio 19; Blood Urea Nitrogen 17 mg/dL (9-20); Calcium 8.5 mg/dL (8.4-10.2); Hemolysis Index 7
[2020-03-19] MEDS: ASPIRIN EC 81 MG TAB PO SCH (09:13)
[2020-03-19] MEDS: FAMOTIDINE 10 MG TAB PO SCH (09:13)
[2020-03-19] MEDS: INSULIN LISPRO 100 UNIT/ML VIAL 3 mL SUB-Q SCH ×3 (09:13→17:16)
[2020-03-19] MEDS: ENOXAPARIN 40 MG/0.4 ML INJ SUB-Q SCH (09:13)
[2020-03-19] MEDS: amLODIPine 10 MG TAB PO SCH (09:16)
[2020-03-19] MEDS ORDERED: LORazepam 2 MG/ML VIAL IV NR (11:00)
--- NOTE | 2020-03-19 11:11 | Magnetic Resonance Report ---
MRI BRAIN WITHOUT CONTRAST INDICATION / CLINICAL INFORMATION: cva. Stroke TECHNIQUE: Multisequence, multiplanar images were obtained. COMPARISON: CT head dated 03/16/2020 FINDINGS: CEREBRAL and CEREBELLAR HEMISPHERES: A 5 mm focus of diffusion restriction is identified overlying th e posterior limb of the left internal capsule on diffusion image 19. No other areas of diffusion rest riction are identified. No evidence for hemorrhage, mass, mass effect or extra-axial fluid collection . Mild cortical volume loss is evident. Mild nonspecific T2 signal abnormalities are noted in the per iventricular and subcortical white matter bilaterally consistent with chronic microangiopathy. No chr onic infarct VENTRICLES: Normal in size and configuration for age. VISUALIZED ORBITS: No significant abnormality. VISUALIZED PARANASAL SINUSES: No significant abnormality. ADDITIONAL FINDINGS: None. IMPRESSION: 5 mm focus of acute to subacute ischemia involving the posterior limb of the left internal capsule. N o evidence for hemorrhage. Nonspecific chronic white matter changes consistent with chronic microangiopathy. Signer Name: Pineda Armendariz Jr, MD Signed: 03/19/2020 11:07 AM Workstation Name: [id number]
--- NOTE | 2020-03-19 11:14 | Magnetic Resonance Report ---
MRA HEAD WITHOUT CONTRAST HISTORY: Stroke COMPARISON: None. TECHNIQUE: Three-dimensional qrul-ey-uqktnt imaging. 3-D/MIP reformats postprocessed. CONTRAST: None. FINDINGS: Intracranial vertebral arteries: No significant abnormality. Basilar artery: No significant abnormality. Posterior cerebral arteries: No significant abnormality. Intracranial internal carotid arteries: No significant abnormality. Anterior cerebral arteries: No significant abnormality. Middle cerebral arteries: No significant abnormality. Additional findings: None. IMPRESSION: No evidence for large vessel occlusion, high-grade stenosis or aneurysm. Signer Name: Pineda Armendariz Jr, MD Signed: 03/19/2020 11:10 AM Workstation Name: [id number]
--- NOTE | 2020-03-19 11:30 | Magnetic Resonance Report ---
MRA NECK 03/19/2020 INDICATION / CLINICAL INFORMATION: cva. TECHNIQUE: Routine MRA of the neck are performed. 3-D/MIP reformats postprocessed. Percentage stenosis is deter mined by direct quantitative measurements of distal internal carotid artery diameter compared with no rmal reference segments or by criteria similar to NASCET where applicable. COMPARISON: None available. FINDINGS: Unenhanced and enhanced MR angiographic images of the neck were obtained. 3D/MIP reformats were post- processed. Carotid bifurcations: There is no evidence of carotid bifurcation stenosis or abnormality. Common carotid arteries: No significant abnormality. Cervical internal carotid arteries: No significant abnormality. Cervical vertebral arteries: No significant abnormality. Visible aortic arch: Not well seen IMPRESSION: No significant abnormality. Signer Name: Yobani Schuster MD Signed: 03/19/2020 11:26 AM Workstation Name: [id number]
--- NOTE | 2020-03-19 12:02 | Progress Note ---
Assessment and Plan Assessment and plan: --Acute /subacute left CVA Current Visit: Yes Status: Acute Plan to address problem: patient has neuro symptoms and right-sided weakness Acute/subacute left CVA, on MRI Not a candidate for TPA, Antiplatelets and statins Neuro work-up reviewed PT OT rehab -- Right hemiparesis Current Visit: Yes Status: Acute Plan to address problem: Follow neuro work-up CT head no acute abnormality noted Follow MRI, MRA brain and neck, carotid Doppler Echocardiogram, follow clinically --Essential hypertension Current Visit: Yes Status: Acute Plan to address problem: Closely monitor blood pressures Maintain permissive hypertension per stroke protocol As needed hydralazine --History of hepatitis; on entecavir at home --Hyperlipidemia Current Visit: Yes Status: Acute Plan to address problem: statin , low-cholesterol diet --DVT prophylaxis Current Visit: Yes Status: Acute Plan to address problem: SQ Lovenox We will closely monitor the patient and adjust the management as needed PT evaluation noted and appreciated, recommended home health , OT evaluated the patient, recommend home with home health Possible discharge tomorrow if stable History Interval history: I have seen and examined the patient at the bedside Patient's chart and medications reviewed No new complaints neuro work-up is in progress Vital signs noted Hospitalist Physical - Constitutional Vitals: Temp Pulse Resp BP Pulse Ox 98.0 F 79 19 123/70 99 03/19/20 07:40 03/19/20 10:00 03/19/20 10:00 03/19/20 09:16 03/19/20 10:00 General appearance: Present: no acute distress, well-nourished, other (CVA with right-sided weakness) - EENT Eyes: Present: PERRL, EOM intact - Neck Neck: Present: supple, normal ROM - Respiratory Respiratory effort: normal Respiratory: bilateral: diminished, negative: rales, rhonchi, wheezing - Cardiovascular Rhythm: regular Heart Sounds: Present: S1 & S2 - Extremities Extremities: no ischemia, abnormal (Right-sided weakness) - Abdominal General gastrointestinal: soft, non-tender, non-distended, normal bowel sounds - Integumentary Integumentary: Present: clear, warm - Psychiatric Psychiatric: appropriate mood/affect, cooperative - Neurologic Neurologic: other (Acute CVA with right-sided weakness) Results - Labs CBC & Chem 7: 03/19/20 04:48 03/19/20 04:48 Labs: Laboratory Last Values WBC 6.0 K/mm3 (4.5-11.0) 03/19/20 04:48 RBC 4.81 M/mm3 (3.65-5.03) 03/19/20 04:48 Hgb 14.5 gm/dl (11.8-15.2) 03/19/20 04:48 Hct 42.7 % (35.5-45.6) 03/19/20 04:48 MCV 89 fl (84-94) 03/19/20 04:48 MCH 30 pg (28-32) 03/19/20 04:48 MCHC 34 % (32-34) 03/19/20 04:48 RDW 13.3 % (13.2-15.2) 03/19/20 04:48 Plt Count 180 K/mm3 (140-440) 03/19/20 04:48 Lymph % (Auto) 25.0 % (13.4-35.0) 03/16/20 13:49 [place] % (Auto) 6.7 % (0.0-7.3) 03/16/20 13:49 Eos % (Auto) 2.4 % (0.0-4.3) 03/16/20 13:49 Baso % (Auto) 0.8 % (0.0-1.8) 03/16/20 13:49 Lymph # (Auto) 1.9 K/mm3 (1.2-5.4) 03/16/20 13:49 [place] # (Auto) 0.5 K/mm3 (0.0-0.8) 03/16/20 13:49 Eos # (Auto) 0.2 K/mm3 (0.0-0.4) 03/16/20 13:49 Baso # (Auto) 0.1 K/mm3 (0.0-0.1) 03/16/20 13:49 Seg Neutrophils % 65.1 % (40.0-70.0) 03/16/20 13:49 Seg Neutrophils # 5.0 K/mm3 (1.8-7.7) 03/16/20 13:49 Sodium 139 mmol/L (137-145) 03/19/20 04:48 Potassium 3.7 mmol/L (3.6-5.0) D 03/19/20 04:48 Chloride 104.8 mmol/L (98-107) 03/19/20 04:48 Carbon Dioxide 26 mmol/L (22-30) 03/19/20 04:48 Anion Gap 12 mmol/L 03/19/20 04:48 BUN 17 mg/dL (9-20) 03/19/20 04:48 Creatinine 0.9 mg/dL (0.8-1.3) 03/19/20 04:48 Estimated GFR > 60 ml/min 03/19/20 04:48 BUN/Creatinine Ratio 19 % 03/19/20 04:48 Glucose 138 mg/dL (75-100) H 03/19/20 04:48 POC Glucose 154 mg/dL (70-105) H 03/19/20 11:14 Hemoglobin A1c 6.8 % (4-6) H 03/17/20 05:46 Calcium 8.5 mg/dL (8.4-10.2) 03/19/20 04:48 Total Bilirubin 0.80 mg/dL (0.1-1.2) 03/16/20 13:49 AST 32 units/L (5-40) 03/16/20 13:49 ALT 43 units/L (7-56) 03/16/20 13:49 Alkaline Phosphatase 103 units/L (35-129) 03/16/20 13:49 Total Protein 7.9 g/dL (6.3-8.2) 03/16/20 13:49 Albumin 4.9 g/dL (3.9-5) 03/16/20 13:49 Albumin/Globulin Ratio 1.6 % 03/16/20 13:49 Triglycerides 68 mg/dL (2-149) 03/16/20 13:49 Cholesterol 209 mg/dL (50-199) H 03/16/20 13:49 LDL Cholesterol Direct 146 mg/dL (50-130) H 03/16/20 13:49 HDL Cholesterol 70 mg/dL (40-59) H 03/16/20 13:49 Cholesterol/HDL Ratio 2.98 % 03/16/20 13:49 Urine Color Yellow (Yellow) 03/16/20 Unknown Urine Turbidity Clear (Clear) 03/16/20 Unknown Urine pH 6.0 (5.0-7.0) 03/16/20 Unknown Ur Specific [place] 1.016 (1.003-1.030) 03/16/20 Unknown Urine Protein <15 mg/dl mg/dL (Negative) 03/16/20 Unknown Urine Glucose (UA) Neg mg/dL (Negative) 03/16/20 Unknown Urine Ketones Neg mg/dL (Negative) 03/16/20 Unknown Urine Blood Neg (Negative) 03/16/20 Unknown Urine Nitrite Neg (Negative) 03/16/20 Unknown Urine Bilirubin Neg (Negative) 03/16/20 Unknown Urine Urobilinogen < 2.0 mg/dL (<2.0) 03/16/20 Unknown Ur Leukocyte Esterase Neg (Negative) 03/16/20 Unknown Urine WBC (Auto) < 1.0 /HPF (0.0-6.0) 03/16/20 Unknown Urine RBC (Auto) 1.0 /HPF (0.0-6.0) 03/16/20 Unknown Urine Mucus Few /HPF 03/16/20 Unknown - Diagnostic Impressions Diagnostic Impressions: Echocardiogram 03/17/20 10:11 Transthoracic Echocardiogram Indication: CVA BP: 157/83 Conclusions *The estimated ejection fraction is 60-65%. *Abnormal left ventricular diastolic filling is observed, consistent with impaired relaxation. *The right ventricular chamber size and systolic function are within normal limits. Findings Procedure Info: The study quality is fair. Left Ventricle: The left ventricular chamber size, wall thickness and systolic function are within normal limits. There are no wall motion abnormalities observed. Ejection fraction is normal. The estimated ejection fraction is 60-65%. Abnormal left ventricular diastolic filling is observed, consistent with impaired relaxation. Left Atrium: The left atrium is normal in size with no visual thrombus identified. Right Ventricle: The right ventricular chamber size and systolic function are within normal limits. Right Atrium: The right atrium appears normal. Aortic Valve: The aortic valve is trileaflet. There is trace of aortic regurgitation. There is no evidence of aortic stenosis. Tricuspid Valve: The tricuspid valve leaflets are normal. There is mild tricuspid regurgitation. The right ventricular systolic pressure is calculated at 29 mmHg. There is no tricuspid stenosis. Pulmonic Valve: The pulmonic valve appears normal. There is mild pulmonic regurgitation. There is no pulmonic stenosis. Pericardium: The pericardium appears normal. A pericardial fat pad is visualized. Aorta: The aorta appears normal. Pulmonary Artery: The main pulmonary artery appears normal. Venous: The inferior vena cava is not visualized. Measurements Chambers 2D Name Value Normal Range IVSd (2D) 0.99 cm (0.6 - 1.1) LVPWd (2D) 0.92 cm (0.6 - 1.1) LVIDd (2D) 4.28 cm (3.7 - 5.6) LVIDs (2D) 2.76 cm (2 - 3.8) LV FS (2D) 35.45 % - EF Teichholz (2D) 65.2 % - Ao root diameter (2D) 2.95 cm (2 - 3.7) Volumes/Mass Name Value Normal Range LA ESV SP 4CH (A/L) 24.35 ml - LA ESV SP 2CH (A/L) 32.84 ml - LA ESV BP (A/L) 28.98 ml - LA ESV BP (A/L) index 16.28 ml/m2 - LA ESV SP 4CH (MOD) 23.24 ml - LA ESV SP 2CH (MOD) 32.39 ml - LA ESV BP (MOD) 27.8 ml - LA ESV BP (MOD) index 15.62 ml/m2 - LV EDV SP 4CH (MOD) 75.49 ml - LV ESV SP 4CH (MOD) 22.97 ml - EF SP 4CH (MOD) 69.57 % - LV EDV SP 2CH (MOD) 67.54 ml - LV ESV SP 2CH (MOD) 23.23 ml - EF SP 2CH (MOD) 65.6 % - LV EDV BP 73.27 ml - LV ESV BP 23.5 ml - BP EF (MOD) 67.93 % - Diastolic/Systolic Function Name Value Normal Range MV E-wave Vmax 0.63 m/sec - MV deceleration time 230.93 msec - MV A-wave Vmax 1.04 m/sec - MV E:A ratio 0.6 ratio - Aortic Valve Name Value Normal Range AV Vmax 1.56 m/sec - AV VTI 28.53 cm - AV peak gradient 9.79 mmHg - AV mean gradient 4.72 mmHg - LVOT diameter 1.91 cm - LVOT Vmax 1.05 m/sec - LVOT VTI 21.71 cm - LVOT peak gradient 4.38 mmHg - LVOT mean gradient 2.46 mmHg - SV LVOT 61.89 ml - DEMARCUS (continuity Vmax) 1.91 cm2 - DEMARCUS (continuity VTI) 2.17 cm2 - Ascending Ao 3.06 cm - Tricuspid Valve Name Value Normal Range TV E-wave Vmax 0.51 m/sec - TR Vmax 2.58 m/sec - TR peak gradient 26.63 mmHg - RAP 3 mmHg - RVSP 29 mmHg - Pulmonic Valve/Qp:Qs Name Value Normal Range PV Vmax 1.51 m/sec - PV peak gradient 9.08 mmHg - MO end-diastolic Vmax 0.81 m/sec - RVOT Vmax 0.68 m/sec - RVOT VTI 10.41 cm - RVOT peak gradient 1.84 mmHg - PV acceleration time 148.43 msec - [place]/IV: Voiding Method Urinal IV Catheter Type [Left Forearm INT / Saline Lock ] Active Medications - Current Medications Current Medications: Generic Name Dose Route Start Last Admin Trade Name Freq PRN Reason Stop Dose Admin Acetaminophen 650 mg 03/17/20 00:53 Acetaminophen 325 Mg Tab PO Q4H PRN Pain MILD(1-3)/Fever >100.5/CALLAHAN Al Hydrox/Mg Hydrox/Simethicone 30 ml 03/17/20 00:53 Alum-Mag Hydroxide-Simethicone [phone]/5ml Oral Liqd 30 Ml PO Q4H PRN Indigestion Amlodipine Besylate 10 mg 03/17/20 10:00 03/19/20 09:16 Amlodipine 10 Mg Tab PO 10 mg QDAY BRADY Administration Aspirin 81 mg 03/17/20 10:00 03/19/20 09:13 Aspirin Ec 81 Mg Tab PO 81 mg DAILY BRADY Administration Atorvastatin Calcium 40 mg 03/17/20 22:00 03/18/20 22:11 Atorvastatin 40 Mg Tab PO 40 mg QHS BRADY Administration Enoxaparin Sodium 40 mg 03/17/20 10:00 03/19/20 09:13 Enoxaparin 40 Mg/0.4 Ml Inj SUB-Q 40 mg QDAY@1000 BRADY Administration Famotidine 10 mg 03/17/20 10:00 03/19/20 09:13 Famotidine 10 Mg Tab PO 10 mg DAILY BRADY Administration Hydralazine HCl 5 mg 03/17/20 01:02 Hydralazine 20 Mg/1 Ml Inj IV Q30MIN PRN Hypertension Insulin Human Lispro 0 unit 03/18/20 11:30 03/19/20 11:51 Insulin Lispro 100 Unit/Ml Vial 3 Ml SUB-Q 2 unit AC BRADY Administration Protocol Lorazepam 2 mg 03/19/20 11:00 Lorazepam 2 Mg/Ml Vial IV 03/19/20 15:00 [employer] NR Magnesium Hydroxide 30 ml 03/17/20 00:53 Magnesium Hydroxide (Mom) Oral Liqd Udc PO Q4H PRN Constipation Ondansetron HCl 4 mg 03/17/20 00:53 Ondansetron 4 Mg/2 Ml Inj IV Q8H PRN Nausea And Vomiting Sodium Chloride 10 ml 03/17/20 10:00 03/19/20 09:14 Sodium Chloride 0.9% 10 Ml Flush Syringe IV 10 ml BID BRADY Administration Sodium Chloride 10 ml 03/17/20 00:53 03/17/20 10:18 Sodium Chloride 0.9% 10 Ml Flush Syringe IV 10 ml PRN PRN Administration LINE FLUSH Trazodone HCl 50 mg 03/17/20 22:00 03/18/20 22:11 Trazodone 50 Mg Tab PO 50 mg QHS BRADY Administration
--- NOTE | 2020-03-19 17:24 | Vascular Lab Report ---
"VL carotid duplex BILAT INDICATION / CLINICAL INFORMATION: Acute CVA COMPARISON: None available. FINDINGS: RIGHT CAROTID: Mild calcifications without significant intimal irregularity. - PLAQUE ESTIMATE (%): < 50% - CCA velocity: 145 cm/sec. - ICA peak systolic velocity: 67 cm/sec. - ICA/CCA PSV Ratio: 0.7 Right Vertebral Artery: Antegrade flow. LEFT CAROTID: Mild calcifications without significant intimal irregularity. - PLAQUE ESTIMATE: < 50% - CCA velocity: 115 cm/sec. - ICA peak systolic velocity: 76 cm/sec. - ICA/CCA PSV Ratio: 0.7 Left Vertebral Artery: Antegrade flow. IMPRESSION: 1. No occlusion or hemodynamically significant stenosis of the bilateral carotid arteries. Velocity criteria are extrapolated from diameter data as defined by the Society of Radiologists in Ul trasound Consensus Conference, Radiology 2003; 229;340-346. Degree of || ICA PSV || Plaque || ICA/CCA Stenosis (%) || (cm/sec) || estimate (%) || PSV Ratio - Normal...............<125..............None.................<2.0 - <50....................<125..............<50....................<2.0 - 50-69................125-230.........>50....................2.0-4.0 - >70 but <100....>230..............>50....................>4.0 - Near...................High, low, .....visible................variable occlusion or none - Total...................None.............visible;................N/A occlusion no lumen Signer Name: Jaydon Singh MD Signed: 03/19/2020 5:20 PM Workstation Name: [id number]"
[2020-03-19] MEDS: traZODone 50 MG TAB PO SCH (22:16)
[2020-03-20 08:10] VITALS: BP 123/65
[2020-03-20] MEDS: INSULIN LISPRO 100 UNIT/ML VIAL 3 mL SUB-Q SCH ×2 (08:12→13:46)
[2020-03-20] MEDS: amLODIPine 10 MG TAB PO SCH (09:52)
[2020-03-20] MEDS: FAMOTIDINE 10 MG TAB PO SCH (09:52)
[2020-03-20] MEDS: ENOXAPARIN 40 MG/0.4 ML INJ SUB-Q SCH (09:52)
[2020-03-20] MEDS: ASPIRIN EC 81 MG TAB PO SCH (09:53)
--- NOTE | 2020-03-20 14:28 | Discharge Summary ---
Providers - Providers Date of Admission: 03/17/20 00:18 Date of discharge: 03/20/20 Attending physician: CHELSIE YU 03/17/20 00:54 Occupational Therapy Evaluate and Treat [CONS] Routine Comment: Reason For Exam: Neuro deficits Occupational Therapy Evaluate and Treat [CONS] Routine Comment: Reason For Exam: Neuro deficits Physical Therapy Evaluation and Treat [CONS] Routine Comment: Reason For Exam: Neuro deficits Physical Therapy Evaluation and Treat [CONS] Routine Comment: Reason For Exam: Neuro deficits 03/17/20 03:05 Speech Therapy Evaluation and Treat [CONS] Urgent Reason For Exam: SLIGHT COUGHING NOTED DURING BEDSIDE SWALLOWING Primary care physician: FLOAT OPERATOR Hospitalization Reason for admission: Right sided weakness and headache Condition: Stable Pertinent studies: CT head without contrast MRI brain MRA head MRA neck Carotid Doppler Echocardiogram Hospital course: 74-year-old lady remains male admitted through the to the emergency room with right-sided lower extremity weakness that started on Thursday. Patient was evaluated by telemetry neurologist , not a candidate for TPA , requested extensive neuro work-up per stroke protocol Patient was admitted started on aspirin and statin, had MRI MRA brain carotid Doppler echocardiogram Patient was evaluated by PT OT and they have recommended home health PT and home health OT. Today patient is comfortable no new complaints vital signs stable Ambulatory tolerating oral nutrition Hemodynamically and clinically stable for discharge home with home health Discharge diagnosis: --Acute /subacute left CVA Current Visit: Yes Status: Acute Plan to address problem: patient has neuro symptoms and right-sided weakness Acute/subacute left CVA, on MRI Not a candidate for TPA, Antiplatelets and statins Neuro work-up reviewed PT OT rehab -- Right hemiparesis Current Visit: Yes Status: Acute Plan to address problem: Follow neuro work-up CT head no acute abnormality noted Follow MRI, MRA brain and neck, carotid Doppler Echocardiogram, follow clinically --Essential hypertension Current Visit: Yes Status: Acute Plan to address problem: Closely monitor blood pressures Maintain permissive hypertension per stroke protocol As needed hydralazine --History of hepatitis; on entecavir at home --Hyperlipidemia Current Visit: Yes Status: Acute Plan to address problem: statin , low-cholesterol diet --DVT prophylaxis Current Visit: Yes Status: Acute Plan to address problem: SQ Lovenox We will closely monitor the patient and adjust the management as needed PT evaluation noted and appreciated, recommended home health , OT evaluated the patient, recommend home with home health Possible discharge tomorrow if stable Disposition: [id number] HOME UNDER HOME HL Time spent for discharge: 32 min Core Measure Documentation - Palliative Care Palliative Care/ Comfort Measures: Not Applicable - Core Measures Any of the following diagnoses?: stroke - Stroke Discharge Requirements Statin for LDL = or >70 mg/dl on DC: Yes Anticoag for atrial fib/atrial flutter: Not Applicable (No A. fib) Antithrombotic for ischemic stroke: Yes Exam - Constitutional Vitals: Temp Pulse Resp BP Pulse Ox 98.5 F 74 18 123/65 93 03/20/20 07:43 03/20/20 10:00 03/20/20 07:43 03/20/20 07:43 03/20/20 07:43 General appearance: Present: no acute distress, well-nourished - EENT Eyes: Present: PERRL, EOM intact - Neck Neck: Present: supple, normal ROM - Respiratory Respiratory effort: normal Respiratory: bilateral: diminished, negative: rales, rhonchi, wheezing - Cardiovascular Rhythm: regular Heart Sounds: Present: S1 & S2 - Extremities Extremities: no ischemia, No edema - Abdominal General gastrointestinal: Present: soft, non-tender, non-distended, normal bowel sounds - Integumentary Integumentary: Present: clear, warm - Musculoskeletal Musculoskeletal: strength equal bilaterally - Psychiatric Psychiatric: appropriate mood/affect, cooperative - Neurologic Neurologic: CNII-XII intact, moves all extremities Plan Activity: advance as tolerated, fall precautions Diet: other (Cardiac diet) Special Instructions: physical therapy, occupational therapy (Home PT and OT) Additional Instructions: Advised to comply with medications and follow-up visits. If you have worsening symptoms contact MD or go to emergency room. Advised to see private neurologist per schedule as mentioned below Plan of Treatment: Home health with [facility] [phone] Follow up with: PRIMARY CAREMD [Primary Care Provider] - 7 Days LAVERN CUNNINGHAM MD [Staff Physician] - 7 Days Prescriptions: amLODIPine 10 mg PO QDAY #30 tablet Aspirin EC [Halfprin EC] 81 mg PO DAILY #30 tablet AtorvaSTATin [Lipitor] 40 mg PO QHS #30 tablet Famotidine [Pepcid] 10 mg PO DAILY #30 tablet
== END 2020-03-20 16:09 | disposition home health service (06) ==
LOC: ED 13:07 → 4A 03-17 00:18 → INTOOBSV 03-19 11:57 → OBSVTOIN 03-19 11:57
PROVIDERS: ADMIT Hospitalist; ATTEND Internal Medicine
DX: I63.9 Cerebral infarction, unspecified (principal); G81.91 Hemiplegia, unspecified affecting right dominant side; I10 Essential (primary) hypertension; E78.5 Hyperlipidemia, unspecified; R29.702 NIHSS score 2; E11.9 Type 2 diabetes mellitus without complications; M19.90 Unspecified osteoarthritis, unspecified site; Z86.19 Personal history of other infectious and parasitic diseases; Z98.890 Other specified postprocedural states; Z86.73 Personal history of transient ischemic attack (TIA), and cerebral infarction without residual deficits; Z79.899 Other long term (current) drug therapy
CPT/HCPCS: 36415; 70450; 70544; 70548; 70551; 80048; 80053; 80061; 81001; 82962; 83036; 85025; 85027; 92610; 93306; 93880; 96372; 97110; 97116; 97162; 97165; 99291; A9270; A9577; G0378; J1650; J1815; 96374

== ENCOUNTER 2021-06-10 08:24 | Emergency (ER) | payer MEDICARE ==
[2021-06-10] MEDS ORDERED: TETANUS,DIPH,PERTUSS(ACELL) VACCINE 0.5 ML SYRINGE IM ONE (11:11)
[2021-06-10] MEDS ORDERED: LIDOCAINE-MPF (1%) 10 MG/1 ML VIAL 5 ML INFILTRATI ONE (11:12)
--- NOTE | 2021-06-10 12:56 | Cat Scan Report ---
CT head/brain wo con INDICATION / CLINICAL INFORMATION: 75 years Male; fall, head injury no nausea/vomiting . TECHNIQUE: Routine CT head without contrast. All CT scans at this location are performed using CT dos e reduction for ALARA by means of automated exposure control. COMPARISON: 03/16/2020 FINDINGS: BRAIN / INTRACRANIAL CONTENTS: No acute hemorrhage, mass effect, midline shift, hydrocephalus, or acu te, large territorial infarct. Mild, diffuse cerebral and cerebellar atrophy. There are mild areas of decreased attenuation in the white matter of the cerebral hemispheres, as wel l as the gangliocapsular regions. These are nonspecific findings and may be related to microangiopath y (hypertension, diabetes, atherosclerosis), given the patient's age. It might be difficult to evalua te for small areas of ischemia without diffusion imaging by MRI. CRANIOCERVICAL JUNCTION: No significant abnormality. ORBITS: No significant abnormality of visualized orbits. SINUSES / MASTOIDS: Mild mucosal thickening seen in the ethmoids. ADDITIONAL FINDINGS: Atherosclerotic disease is seen in the anterior circulation. IMPRESSION: 1. No focal mass, hemorrhage, hydrocephalus, or acute, large territorial infarct. Signer Name: Mao Cain MD, III Signed: 06/10/2021 12:51 PM Workstation Name: [id number]
--- NOTE | 2021-06-10 13:01 | Cat Scan Report ---
CT cervical spine wo con INDICATION / CLINICAL INFORMATION: 75 years Male; Fell today. no nausea/vomiting . TECHNIQUE: Axial CT images of the cervical spine were obtained. Sagittal and coronal reformatted images were pr oduced. All CT scans at this location are performed using CT dose reduction for ALARA by means of aut omated exposure control. COMPARISON: None available. FINDINGS: POST-SURGICAL CHANGES: None. ALIGNMENT: No significant abnormality. VERTEBRAE: No signs of fracture. Vertebral bodies are grossly normal in height throughout. Significant osseous foraminal narrowing seen on the left at C3-4, C5-6, C6-7 from facet and uncinate hypertrophy. Similar findings seen on the right at C4-5, C5-6, C6-7. Mild to moderate facet hypertrophy seen at multiple levels. Most marked findings on the left at C3-4 and on the right at C4-5. INTRAVERTEBRAL DISCS: Mild disc space narrowing seen at C5-6. Mild disc disease is seen at this level , as well as C6-7 and C3-4. There may be slight encroachment upon the cervical cord at these levels, although no definitive signs of cord impingement are appreciated. PARASPINAL SOFT TISSUES: No significant abnormality. ADDITIONAL FINDINGS: None. IMPRESSION: 1. No signs of acute bony trauma to the cervical spine. Signer Name: Mao Cain MD, III Signed: 06/10/2021 12:57 PM Workstation Name: [id number]
--- NOTE | 2021-06-10 13:07 | Emergency Department Report ---
ED Fall HPI - General Chief Complaint: Fall Stated Complaint: NOSE BLEED Time Seen by Provider: 06/10/21 11:10 Source: patient Mode of arrival: Ambulatory - History of Present Illness Initial Comments: 75-year-old male presents to the emergency department for evaluation after a fall. He states that he was walking around the house and he tripped, fell, and hit his head. He denies loss of consciousness but presents with laceration to forehead which is actively bleeding. He denies dizziness, vision changes, and headache at this time. MD Complaint: fall -: Sudden, hour(s) When Fall Occurred: 1-3 hours PROGRESSIVE CARE UNIT REGISTERED NURSE Fall Witnessed: yes, by family Place Fall Occurred: home Loss of Consciousness: none Symptoms Prior to Fall: none Location: head Severity: mild Severity scale (0 -10): 2 Quality: aching Context: tripped/slipped Associated Symptoms: denies - Related Data Home Medications Medication Instructions Recorded Confirmed Last Taken Entecavir 0.5 mg PO DAILY 08/02/18 08/02/18 08/04/18 Multivit-Min/FA/Lycopen/Lutein 1 each PO DAILY 08/02/18 08/05/18 08/04/18 [Centrum Silver Men Tablet] Previous Rx's Medication Instructions Recorded Last Taken Type Celecoxib [celeBREX] 200 mg PO BID #60 cap 08/06/18 Unknown Rx Oxycodone HCl/Acetaminophen 1 each PO Q6HR PRN #30 tablet 08/06/18 Unknown Rx [Percocet 7.5/325 mg] Aspirin EC [Halfprin EC] 81 mg PO DAILY #30 tablet 03/20/20 Unknown Rx AtorvaSTATin [Lipitor] 40 mg PO QHS #30 tablet 03/20/20 Unknown Rx Famotidine [Pepcid] 10 mg PO DAILY #30 tablet 03/20/20 Unknown Rx amLODIPine 10 mg PO QDAY #30 tablet 03/20/20 Unknown Rx Allergies Allergy/AdvReac Type Severity Reaction Status Date / Time No Known Allergies Allergy Verified 03/16/20 13:23 ED Review of Systems ROS: Stated complaint: NOSE BLEED Other details as noted in HPI Comment: All other systems reviewed and negative Constitutional: denies: chills, fever Eyes: denies: vision change Respiratory: denies: shortness of breath, SOB with exertion, SOB at rest Cardiovascular: denies: chest pain, palpitations, dyspnea on exertion Gastrointestinal: denies: abdominal pain, nausea, vomiting Musculoskeletal: denies: back pain Skin: denies: rash, lesions Neurological: denies: headache, weakness, numbness, paresthesias, confusion, abnormal gait, vertigo ED Past Medical Hx - Past Medical History Hx Hypertension: Yes Hx CVA: Yes Hx Diabetes: Yes Hx Arthritis: Yes Hx HIV: No - Social History Smoking Status: Never Smoker Substance Use Type: None - Medications Home Medications: Home Medications Medication Instructions Recorded Confirmed Last Taken Type Entecavir 0.5 mg PO DAILY 08/02/18 08/02/18 08/04/18 History Multivit-Min/FA/Lycopen/Lutein 1 each PO DAILY 08/02/18 08/05/18 08/04/18 History [Centrum Silver Men Tablet] Celecoxib [celeBREX] 200 mg PO BID #60 cap 08/06/18 Unknown Rx Oxycodone HCl/Acetaminophen 1 each PO Q6HR PRN #30 tablet 08/06/18 Unknown Rx [Percocet 7.5/325 mg] Aspirin EC [Halfprin EC] 81 mg PO DAILY #30 tablet 03/20/20 Unknown Rx AtorvaSTATin [Lipitor] 40 mg PO QHS #30 tablet 03/20/20 Unknown Rx Famotidine [Pepcid] 10 mg PO DAILY #30 tablet 03/20/20 Unknown Rx amLODIPine 10 mg PO QDAY #30 tablet 03/20/20 Unknown Rx ED Physical Exam - General Limitations: No Limitations General appearance: alert, in no apparent distress - Head Head exam: Present: normocephalic. Absent: atraumatic - Expanded Head Exam Expanded Head exam: Present: laceration (Forehead) 1 - 4 cm laceration, actively bleeding. - Eye Eye exam: Present: normal appearance, PERRL. Absent: conjunctival injection - Neck Neck exam: Present: normal inspection, full ROM. Absent: tenderness - Respiratory Respiratory exam: Present: normal lung sounds bilaterally. Absent: respiratory distress, wheezes, rales, rhonchi, stridor, chest wall tenderness - Cardiovascular Cardiovascular Exam: Present: regular rate, normal heart sounds - GI/Abdominal GI/Abdominal exam: Present: soft, normal bowel sounds. Absent: tenderness, rebound, rigid - Extremities Exam Extremities exam: Present: normal inspection - Back Exam Back exam: Present: normal inspection. Absent: tenderness, paraspinal tenderness, vertebral tenderness - Neurological Exam Neurological exam: Present: alert, oriented X3, CN II-XII intact, normal gait, reflexes normal. Absent: motor sensory deficit - Psychiatric Psychiatric exam: Present: normal affect, normal mood - Skin Skin exam: Present: warm, dry, intact, normal color ED Course Vital Signs 06/10/21 06/10/21 08:53 13:11 Temperature 97.7 F Pulse Rate 68 68 Respiratory 18 16 Rate Blood Pressure 130/82 135/65 [Right] O2 Sat by Pulse 100 Oximetry - Laceration /Wound Repair Face Wound Location: face (Forehead) Wound Length (cm): 4 Wound's Depth, Shape: superficial, linear Irrigated w/ Saline (ccs): 40 Betadine Prep?: No Anesthesia: 1% Lidocaine Volume Anesthetic (ccs): 3 Wound Repaired With: sutures Suture Size/Type: 6:0, proline Number of Sutures: 7 Layer Closure?: No Sterile Dressing Applied?: Yes Progress: Wound irrigated with normal saline, anesthetized with lidocaine, then 7 sutures placed with 6-0 Prolene. Bleeding resolved. Patient tolerated well ED Medical Decision Making - Radiology Data Radiology results: report reviewed CT scan of head without contrast: FINDINGS: BRAIN / INTRACRANIAL CONTENTS: No acute hemorrhage, mass effect, midline shift, hydrocephalus, or acute, large territorial infarct. Mild, diffuse cerebral and cerebellar atrophy. There are mild areas of decreased attenuation in the white matter of the cerebral hemispheres, as well as the gangliocapsular regions. These are nonspecific findings and may be related to microangiopathy (hypertension, diabetes, atherosclerosis), given the patient's age. It might be difficult to evaluate for small areas of ischemia without diffusion imaging by MRI. CRANIOCERVICAL JUNCTION: No significant abnormality. ORBITS: No significant abnormality of visualized orbits. SINUSES / MASTOIDS: Mild mucosal thickening seen in the ethmoids. ADDITIONAL FINDINGS: Atherosclerotic disease is seen in the anterior circulation. IMPRESSION: 1. No focal mass, hemorrhage, hydrocephalus, or acute, large territorial infarct. CT scan of cervical spine without contrast: FINDINGS: POST-SURGICAL CHANGES: None. ALIGNMENT: No significant abnormality. VERTEBRAE: No signs of fracture. Vertebral bodies are grossly normal in height throughout. Significant osseous foraminal narrowing seen on the left at C3-4, C5-6, C6-7 from facet and uncinate hypertrophy. Similar findings seen on the right at C4-5, C5-6, C6-7. Mild to moderate facet hypertrophy seen at multiple levels. Most marked findings on the left at C3- 4 and on the right at C4-5. INTRAVERTEBRAL DISCS: Mild disc space narrowing seen at C5-6. Mild disc disease is seen at this level, as well as C6-7 and C3-4. There may be slight encroachment upon the cervical cord at these levels, although no definitive signs of cord impingement are appreciated. PARASPINAL SOFT TISSUES: No significant abnormality. ADDITIONAL FINDINGS: None. IMPRESSION: 1. No signs of acute bony trauma to the cervical spine. - Medical Decision Making 75-year-old male presents to the emergency department for evaluation after a fall. He states that he was walking around the house and he tripped, fell, and hit his head. He denies loss of consciousness but presents with laceration to forehead which is actively bleeding. He denies dizziness, vision changes, and headache at this time. Forehead laceration repaired. Patient without neurological symptoms, but given patient's age and persistent bleeding of laceration, patient had CT scan of head and cervical spine. Both CT scans were within normal limits. Patient discharged home to follow-up here or with primary care provider in 7 to 10 days to have sutures removed. Patient advised to monitor for signs of infection and return to the emergency department if any noted. Patient verbalized understanding of and agreement with plan of care. Critical care attestation.: If time is entered above; I have spent that time in minutes in the direct care of this critically ill patient, excluding procedure time. ED Disposition Clinical Impression: Fall Qualifiers: Encounter type: initial encounter Qualified Code(s): W19.XXXA - Unspecified fall, initial encounter Head injury Qualifiers: Encounter type: initial encounter Qualified Code(s): S09.90XA - Unspecified injury of head, initial encounter Forehead laceration Qualifiers: Encounter type: initial encounter Qualified Code(s): S01.81XA - Laceration without foreign body of other part of head, initial encounter Disposition: HOME / SELF CARE / HOMELESS Is pt being admited?: No Does the pt Need Aspirin: No Condition: Stable Instructions: Laceration Care, Adult, [id number], Sutures, [place], or Adhesive Wound Closure, [id number], Sutured Wound Care, [id number] Additional Instructions: Return here or follow-up with primary care provider in 7 to 10 days to have sutures removed. Monitor for signs of infection and if any noted, return to the emergency department immediately. Referrals: DEBRA ENGLISH MD [Primary Care Provider] - 3-5 Days Time of Disposition: 13:06
[2021-06-10 13:12] VITALS: BP 135/65
== END 2021-06-10 13:15 | disposition home or self-care (01) ==
LOC: ED 08:24
DX: S01.81XA Laceration without foreign body of other part of head, initial encounter (principal); S09.90XA Unspecified injury of head, initial encounter; W19.XXXA Unspecified fall, initial encounter; Y93.89 Activity, other specified; Y92.89 Other specified places as the place of occurrence of the external cause; Y99.8 Other external cause status
CPT/HCPCS: 12013; 70450; 72125; 90471; 90715; 99283; J3490